=== PATIENT | female | born 1980 | race Caucasian/White ===

== ENCOUNTER 2019-05-01 12:25 | Emergency (ER) | payer OTHER ==
[2019-05-01] MEDS ORDERED: Oseltamivir 75 MG CAP ONE (13:07)
[2019-05-01] MEDS ORDERED: Benzonatate 100 MG CAP ONE (13:10)
== END 2019-05-01 13:54 | disposition home or self-care (01) ==
LOC: MADERS 12:25
DX: J11.1 Influenza due to unidentified influenza virus with other respiratory manifestations (principal); F41.9 Anxiety disorder, unspecified
CPT/HCPCS: 87804; 99283